=== PATIENT | male | born 1980 | race Caucasian/White ===

== ENCOUNTER 2021-04-14 08:14 | Outpatient (CLI) | payer BC | END 2021-04-14 08:15 | disposition home or self-care (01) | LOC: TBSIIMAG 08:14 | PROVIDERS: ATTEND Family Medicine | DX: M23.92 Unspecified internal derangement of left knee (principal); S76.112A Strain of left quadriceps muscle, fascia and tendon, initial encounter; M76.52 Patellar tendinitis, left knee ==